=== PATIENT | male | born 1965 | race Caucasian/White ===

== ENCOUNTER 2017-02-02 22:48 | Emergency (ER) | payer OTHER | END 2017-02-03 01:52 | disposition home or self-care (01) | LOC: ER 22:48 | DX: G43.909 Migraine, unspecified, not intractable, without status migrainosus (principal); E86.0 Dehydration; Z88.0 Allergy status to penicillin; Z88.6 Allergy status to analgesic agent | CPT/HCPCS: 36415; 96361; 96374; 96375; J2550 ==